=== PATIENT | female | born 1960 | race Caucasian/White ===

== ENCOUNTER 2020-04-16 12:24 | Emergency (ER) | payer OTHER, SELFPAY ==
--- NOTE | ~2020-04-16 | CT_ITS ---
EXAMINATION: CT abdomen pelvis wo con DATE: 04/16/2020 14:59 INDICATION: Left flank pain. Hematuria. TECHNIQUE: Computed tomography (CT) of the abdomen and pelvis was performed without intravenous contr ast. Automated exposure control and iterative reconstruction technique were employed. The dose-length product was 583.69 mGy-cm. COMPARISON: None. FINDINGS: The visualized portions of the lung bases demonstrate mild atelectasis. There is mild emphy sema. There are 5 mm and 4 mm nodules in right lower lobe, likely benign. No pleural effusion. The he art size is normal. No pericardial effusion. The liver, gallbladder, spleen, pancreas, adrenal glands , and right kidney are normal. There is a 3 mm stone in left kidney. There is diverticulosis of the c olon without evidence of diverticulitis. There are no dilated loops of bowel. The appendix is normal. There are no pathologically enlarged lymph nodes. There is no free intraperitoneal fluid. There is d extroscoliosis of thoracolumbar spine. There is severe thoracic spondylosis and moderate lumbar spond ylosis. IMPRESSION: 1. 3 mm nonobstructing left kidney stone. Reviewed, dictated and finalized at location A. [employer]ER [employer] REAMER
[2020-04-16 12:47] VITALS: BP 150/88; PULSE 55; RESP 20; TEMP 36.7; O2SAT 97
[2020-04-16 13:05] LABS: Basophils Absolute Auto 0.1 K/mm3 (0.0-0.1); Basophils Percent Auto 1.1 % (0.2-1.2); Eosinophils Absolute Auto 0.6 K/mm3 (0-0.3); Eosinophils Percent Auto 8.6 % (0-4.4); Hematocrit 40.2 % (37.0-47.0); Immature Granulocyte Absolute 0.01 K/mm3 (0.00-0.031); Immature Granulocyte Percent A 0.2 % (0-0.5); Lymphocytes Absolute Auto 1.75 K/mm3 (0.9-3.2); Lymphocytes Percent Auto 26.5 % (18.3-44.2); Mean Corpuscular HGB Conc 32.3 g/dl (32-36); Mean Corpuscular Hemoglobin 28.7 pg (26-34); Mean Corpuscular Volume 88.7 fl (80-100); Mean Platelet Volume 11.1 fl (7.4-10.4); Monocytes Absolute Auto 0.5 K/mm3 (0.1-0.6); Monocytes Percent Auto 7.6 % (2.6-8.5); Neutrophils Absolute Auto 3.7 K/mm3 (1.3-6.7); Platelet Count Result 201 k/mm3 (150-375); Red Blood Count 4.53 M/mm3 (4.2-5.4); Red Cell Distribution Width 14.1 % (11.5-14.5); White Blood Count 6.6 K/mm3 (4.5-10.0)
[2020-04-16 13:11] LABS: Add Urine Microscopic? YES; Appearance Urine Cloudy (Clear); Bacteria Urine Trace /hpf; Bilirubin Urine Negative (Negative); Blood Urine 3+ (Negative); Glucose Urine UA Negative (Negative); Ketones Urine Negative (Negative); Leukocyte Esterase Ur 1+ LEU/UL (Negative); Mucus Urine Rare /lpf; Nitrate Urine Negative (Negative); Protein Urine 1+ mg/dL (Negative); RBC Urine >75 /hpf (0-2); Squamous Epithelial Cell Urine Moderate /hpf (Few); Urobilinogen Urine Negative mg/dL (<2.0); WBC Urine 21-30 /hpf
[2020-04-16 13:21] LABS: Color Urine Light Red (Yellow)
[2020-04-16 13:26] LABS: Anion Gap 7 mmol/L (8-16); Blood Urea Nitrogen 18 mg/dL (7-17); Calcium 8.7 mg/dL (8.4-10.2); Carbon Dioxide 24 mmol/L (22-30); Chloride 107 mmol/L (98-107); Estimated CRCL calculation 104 ml/min; Estimated Glomerular Filt Rate > 60; Glucose 89 mg/dL (65-105); Potassium 4.1 mmol/L (3.4-5.0); Sodium 138 mmol/L (137-145)
[2020-04-16 14:02] VITALS: BP 154/77; PULSE 83; RESP 16; TEMP 36.8; O2SAT 96
--- NOTE | 2020-04-16 14:47 | ED.FEMALEGU ---
HPI - Female Genitourinary General Chief complaint: Urogenital-Female Stated complaint: BLOOD IN URINE Time Seen by Provider: 04/16/20 14:29 History of Present Illness HPI Narrative: 60 yo female presents to the ED for hematuria. She first noticed blood in her urine yesterday. Initially minimal. Now very bloody with some small clots. Associated with moderate left flank pain, which is improving, and frequent urination. She has never had these symptoms before. Related Data Home Medications Medication Instructions Recorded Confirmed escitalopram oxalate mg 04/16/20 lisinopril 04/16/20 oxybutynin chloride mg PO 04/16/20 venlafaxine mg PO 04/16/20 04/16/20 Allergies Allergy/AdvReac Type Severity Reaction Status Date / Time No Known Allergies Allergy Unknown Verified 04/16/20 12:52 Review of Systems Review of Systems: All systems reviewed & are unremarkable except as noted in HPI and below Constitutional: Constitutional: Denies chills Cardiovascular: Cardiovascular: Denies chest pain Respiratory: Respiratory: Denies dyspnea Gastrointestinal: Gastrointestinal: Denies constipation, Denies diarrhea, Denies nausea and Denies vomiting Genitourinary: Genitourinary: Reports hematuria, Reports nocturia, Denies dysuria, Reports flank pain and Denies urinary incontinence Neurologic: Denies confusion, Denies dizziness and Denies weakness PMFSH Past Medical History Medical History (Updated 04/21/20 @ 17:10 by Toni Caal MD) Anxiety Surgical History Surgical History (Updated 04/21/20 @ 17:10 by Toni Caal MD) H/O tubal ligation Social History Social History (Updated 04/21/20 @ 17:10 by Toni Caal MD) Smoking status: Current every day smoker Gender identity (if verbalized by the patient): Female Exam Const: General: healthy appearing, no acute distress and alert Orientation/consciousness: patient oriented x3 HENMT: Head: normal to inspection Neck: Neck: normal visual inspection and no lymphadenopathy Resp: Effort & Inspection: normal respiratory effort Auscultation: clear to auscultation bilaterally, no rales, no rhonchi and no wheezes Cardio: Jugular venous distension: no JVD Rate: regular rate Rhythm: regular rhythm Heart sounds: no murmurs GI: Inspection: non-distended GI Palp: Yes Soft to palpation and No Tenderness to palpation present (GI) Skin: General skin exam: normal color Neuro: General: patient oriented x3 and moves all extremities Speech: normal speech Extrem: General: no edema Psych: Appearance: well kempt Affect: normal affect Course Vital Signs Vital signs: Vital Signs Temperature 36.7 C 04/16/20 12:47 Pulse Rate 55 L 04/16/20 12:47 Respiratory Rate 20 04/16/20 12:47 Blood Pressure 150/88 H 04/16/20 12:47 Pulse Oximetry 97 04/16/20 12:47 Temperature 36.1 C L 04/16/20 16:16 Pulse Rate 50 L 04/16/20 16:16 Respiratory Rate 16 04/16/20 16:16 Blood Pressure 147/71 H 04/16/20 16:16 Pulse Oximetry 97 04/16/20 16:16 MDM - Female Genitourinary MDM Narrative Medical decision making narrative: She has a stone in the left kidney, unlikely to be the source of her symtpoms. Possible that she already passed a stone. Cannot rule out UTI based on UA. I start antibiotics. Differential Diagnosis Differential diagnosis: Likely urinary tract infection, cystitis and other (pyelonephritis, Kidney stone) Medical Records Attestation: I reviewed the patient's medical records. Lab Data Attestation: I reviewed the patient's lab results. Result diagrams: 04/16/20 12:55 04/16/20 12:55 Labs: Lab Results 04/16/20 04/16/20 04/16/20 Range/Units 12:55 12:55 12:55 WBC 6.6 (4.5-10.0) K/mm3 RBC 4.53 (4.2-5.4) M/mm3 Hgb 13.0 (12.0-15.0) g/dL Hct 40.2 (37.0-47.0) % MCV 88.7 (80-100) fl MCH 28.7 (26-34) pg MCHC 32.3 (32-36) g/dl RDW 14.1 (11.5-14.5) % Plt
[2020-04-16] MEDS: NITROFURANTOIN MONOHYD MACROCR 100 MG CAP PO (15:37)
[2020-04-16 16:16] VITALS: BP 147/71; PULSE 50; RESP 16; TEMP 36.1; O2SAT 97
== END 2020-04-16 16:19 | disposition home or self-care (01) ==
PROVIDERS: Emergency Provider Emergency Medicine; PCP Internal Medicine
DX: N39.0 Urinary tract infection, site not specified (principal); F17.200 Nicotine dependence, unspecified, uncomplicated; N20.0 Calculus of kidney
CPT/HCPCS: 36415; 74176; 80048; 81001; 85025; 87077; 87086; 87088; 87186; 99284; A9270

== ENCOUNTER 2021-07-27 08:12 | Outpatient (CLI) | payer BC, SELFPAY ==
[2021-07-27 08:56] LABS: Alanine Aminotransferase 20 U/L (4-35); Albumin Level 4.1 g/dL (3.5-5.1); Alkaline Phosphatase 80 U/L (38-126); Anion Gap 7 mmol/L (8-16); Aspartate Amino Transferase 34 U/L (14-36); Bilirubin,Total 0.5 mg/dL (0.2-1.3); Blood Urea Nitrogen 19 mg/dL (7-17); Calcium 8.8 mg/dL (8.4-10.2); Carbon Dioxide 23 mmol/L (22-30); Chloride 110 mmol/L (98-107); Cholesterol 227 mg/dL (0-200); Estimated Glomerular Filt Rate > 60; Glucose 102 mg/dL (65-110); HDL Direct 63 mg/dL; Potassium 4.3 mmol/L (3.4-5.0); Sodium 140 mmol/L (137-145); Triglycerides 100 mg/dL (<150)
[2021-07-27 09:07] LABS: LDL Cholesterol Direct 112 mg/dL
[2021-07-27 09:45] LABS: Vitamin D 25 Hydroxy 43.6 ng/mL
== END 2021-07-27 08:13 | disposition home or self-care (01) ==
LOC: ANHLAB 08:16
PROVIDERS: PCP Internal Medicine; Visit Provider Internal Medicine
DX: E78.5 Hyperlipidemia, unspecified (principal); I10 Essential (primary) hypertension; Z51.81 Encounter for therapeutic drug level monitoring; Z79.899 Other long term (current) drug therapy
CPT/HCPCS: 36415; 80053; 80061; 82306

== ENCOUNTER 2022-05-14 10:13 | Emergency (ER) | payer OTHER, BC, SELFPAY ==
--- NOTE | ~2022-05-14 | XR_ITS ---
EXAMINATION: XR wrist LT min 3V DATE: 05/14/2022 11:06 INDICATION: Left wrist pain, initial encounter TECHNIQUE: Three views of the left wrist were obtained. COMPARISON: None available FINDINGS: There is a comminuted intra-articular fracture of the distal radius. The distal fracture fr agment is overriding. There are 40 degrees of dorsal angulation at the fracture site. Radiocarpal ali gnment appears to be maintained. No additional fracture is seen. There is advanced osteoarthritis at the first carpometacarpal joint. IMPRESSION: 1. Comminuted intra-articular fracture of the distal radius with angulation and overriding of the dis parris fracture fragment. Reviewed, dictated and finalized at location A. RAGE SPECIALIST RN IMPRESSION: 1. Comminuted intra-articular fracture of the distal radius with angulation and overriding of the distal fracture fragment.
--- NOTE | ~2022-05-14 | XR_ITS ---
EXAMINATION: XR wrist LT 2V INDICATION: Post reduction TECHNIQUE: Two views of the left wrist are obtained COMPARISON: 1036 hours FINDINGS: Again seen is a comminuted intra-articular fracture of the distal radius. The distal fractu re fragment remains dorsally displaced and is overriding. Angulation at the fracture site has been re duced. A transverse ulnar styloid avulsion is noted. There is soft tissue swelling of the wrist. IMPRESSION: 1. Comminuted intra-articular fracture at the distal radius with persistent overriding of the distal fracture fragment but improved angulation. 2. Ulnar styloid avulsion. Reviewed, dictated and finalized at location A. CAID BUSINESS ANALYST IMPRESSION: 1. Comminuted intra-articular fracture at the distal radius with persistent ove rriding of the distal fracture fragment but improved angulation. 2. Ulnar styloid avulsion.
[2022-05-14 10:22] VITALS: BP 167/73; PULSE 53; RESP 16; TEMP 36.4; O2SAT 100
--- NOTE | 2022-05-14 10:42 | ED.UPPEXIN ---
HPI - Extremity Injury (Upper) General Chief Complaint: Extremity Injury, Upper Stated Complaint: fall, left wrist injury Time Seen by Provider: 05/14/22 10:19 History of Present Illness HPI narrative: Patient is a 62-year-old right-handed female here for evaluation of left wrist pain after a fall today. Patient states that she was walking at work in her usual state of health when her shoes got caught on an object on the ground, causing her to fall backwards and land on both hands behind her. Since the fall she is complained of left wrist pain. She denies any numbness or tingling in her hands. No head injury in the fall. Has not taken any medicine for pain. Related Data Home Medications Medication Instructions Recorded Confirmed escitalopram oxalate 10 mg tablet mg 04/16/20 lisinopril 40 mg tablet 04/16/20 oxybutynin chloride 10 mg mg PO 04/16/20 tablet,extended release 24 hr venlafaxine 150 mg mg PO 04/16/20 04/16/20 capsule,extended release 24 hr Allergies Allergy/AdvReac Type Severity Reaction Status Date / Time No Known Allergies Allergy Unknown Verified 05/14/22 10:25 Review of Systems Review of Systems: Gen: Denies fevers or chills Eyes: Denies eye pain or visual change ENT: Denies congestion Respiratory: Denies shortness of breath or cough CV: Denies chest pain or palpitations GI: Denies abdominal pain nausea, emesis or diarrhea : denies burning, urgency, frequency or hematuria Musculoskeletal: Reports left wrist pain. Denies back pain or muscle pain Neuro: Denies numbness, tingling, weakness or focal weakness Skin: Denies rash Except as documented, all other systems reviewed and negative [facility] Past Medical History Medical History Anxiety Surgical History Surgical History H/O tubal ligation Social History Social History (Updated 04/21/20 @ 17:10 by Toni Caal MD) Smoking status: Current every day smoker Gender identity (if verbalized by the patient): Female Exam Narrative: Gen: Alert, oriented, tearful Eyes: EOMI, no icterus Pulm: Respirations even and unlabored, symmetric thorax expansion, no audible stridor or visible cyanosis CV: Strong radial pulses. Brisk capillary refill GI: No distension, no voluntary/involuntary guarding Neuro: Sensation intact over entirety of hand and wrist. AOx4, moves all extremities without apparent difficulty or weakness, follows commands MSK: There is an obvious deformity to the left wrist, tenderness to palpation over the distal radius. Skin: No jaundice, no visible bruising, rashes, lesions or wounds on exposed skin Psych: Normal mood/affect, insight/judgement good, adequate fund of knowledge, recent/remote memory intact Course Vital Signs Vital signs: Vital Signs Temperature 97.5 F L 05/14/22 10:22 Pulse Rate 53 L 05/14/22 10:22 Respiratory Rate 16 05/14/22 10:22 Blood Pressure 167/73 H 05/14/22 10:22 Pulse Oximetry 100 05/14/22 10:22 Oxygen Delivery Room Air 05/14/22 10:22 Temperature 97.5 F L 05/14/22 10:22 Pulse Rate 53 L 05/14/22 10:22 Respiratory Rate 16 05/14/22 10:22 Blood Pressure 167/73 H 05/14/22 10:22 Pulse Oximetry 100 05/14/22 10:22 Oxygen Delivery Room Air 05/14/22 10:22 Procedures Orthopedic Joint Reduction Joint #1: Orthopedic Joint Reduction Date: 05/14/22 Orthopedic Joint Reduction Time: 13:00 Time Out Performed: Yes Side: left Joint Reduction Location: wrist Analgesia: hematoma block and other (fentanyl) Pre-Procedure Neuro Vascular Exam: normal Local Anesthesia: lidocaine 1% Amount of anesthesic used (mL): 7 Technique used: traction/counter-traction (finger traps) Post-reduction neuro exam: intact Post-reduction vascular: intact Post Reduction X-Ray Obtained: Gallito
[2022-05-14] MEDS: fentaNYL CITRATE INJ (*CRX) 100 MCG/2 ML VIAL 50 MCG IV PUSH (10:56)
[2022-05-14] MEDS: fentaNYL CITRATE INJ (*CRX) 100 MCG/2 ML VIAL 25 MCG IV PUSH (14:12)
== END 2022-05-14 14:21 | disposition home or self-care (01) ==
PROVIDERS: Emergency Provider Physician Assistant; PCP Internal Medicine
DX: S52.572A Other intraarticular fracture of lower end of left radius, initial encounter for closed fracture (principal); S52.612A Displaced fracture of left ulna styloid process, initial encounter for closed fracture; S62.002A Unspecified fracture of navicular [scaphoid] bone of left wrist, initial encounter for closed fracture; F41.9 Anxiety disorder, unspecified; F17.200 Nicotine dependence, unspecified, uncomplicated; W18.09XA Striking against other object with subsequent fall, initial encounter
CPT/HCPCS: 25605; 25624; 73100; 73110; 96374; 96376; 99285; J3010

== ENCOUNTER 2024-02-13 08:38 | Outpatient (CLI) | payer BC, SELFPAY ==
--- NOTE | 2024-02-13 | ECHO_ITS ---
Patient Info Name: Maria Del Rosario Martinez Age: 63 years : 1960 Gender: Female Ht: 65 in Wt: 190 lbs BSA: 2.02 m2 HR: 51 bpm BP: 110 / 74 mmHg Heart Rhythm: Bradycardia Technical Quality: Good Exam Date: 02/13/2024 9:06 AM Exam Location: Echo Lab Patient Status: Outpatient Admit Date: 02/13/2024 Staff Ordering Physician: Keira, Coy Soares MD Extractor Machine Operator: Kiya Dempsey RDCS Attending Provider: New, Coy Soares MD Referring Physician: Keira LATHAM; Exam Type: CA echo doppler color flow Study Info Indications - MURMUR Complete two-dimensional, color flow and Doppler transthoracic echocardiogram is performed. Summary 1. Complete two-dimensional, color flow and Doppler transthoracic echocardiogram is performed. 2. Left ventricular chamber dimension is normal. 3. Left ventricular systolic function is normal, estimated at 60-65%. 4. The left ventricular diastolic function is abnormal. 5. E/e' 13 is mildly elevated. 6. Left atrial chamber dimension is mildly enlarged. 7. There is moderate aortic valve sclerosis. 8. There is mild aortic valve stenosis with a peak velocity of 303 cm/s, mean gradient of 27 mmHg, and aortic valve area of 1.5 cm2. 9. There is trace mitral valve regurgitation. 10. There is trace tricuspid valve regurgitation. 11. No pulmonary hypertension, estimated pulmonary arterial systolic pressure is 34 mmHg. Left Ventricle E/e' 13 is mildly elevated. Left ventricular chamber dimension is normal. Left ventricular systolic function is normal, estimated at 60-65%. The left ventricular diastolic function is abnormal. Right Ventricle Right ventricular systolic function is normal and with normal TAPSE 2.5 cm. Right ventricular chamber dimension is normal. Left Atria Left atrial chamber dimension is mildly enlarged. Right Atria Right atrial chamber dimension is normal. Aortic Valve The aortic valve is trileaflet. There is moderate aortic valve sclerosis. There is mild aortic valve stenosis with a peak velocity of 303 cm/s, mean gradient of 27 mmHg, and aortic valve area of 1.5 cm2. There is no aortic valve regurgitation. Pulmonic Valve There is no pulmonic regurgitation. Mitral Valve There is no mitral valve stenosis. There is trace mitral valve regurgitation. Tricuspid Valve There is trace tricuspid valve regurgitation. No pulmonary hypertension, estimated pulmonary arterial systolic pressure is 34 mmHg. Pericardium/Pleural There is no pericardial effusion. Inferior Vena Cava Normal inferior vena cava with >50% collapse upon inspiration consistent with normal right atrial pressure, 5 mmHg. Aorta The aortic root size at the sinus of Valsalva is normal. Left Ventricular Outflow Tract Name Value Normal LVOT 2D LVOT Diameter 2.1 cm LVOT Doppler LVOT Peak Gradient 6 mmHg LVOT Mean Gradient 3 mmHg LVOT VTI 39 cm LVOT VTI/AV VTI Ratio 0.4 LVOT Stroke Volume 130 ml LVOT CO 6.1 l/min LVOT CI 3.0 l/min/m2 Mitral Valve Name Value Normal MV Doppler MV Decel Grayson 356 cm/s2 MV PHT 88 ms MV Area (PHT) 2.5 cm2 4.0-5.0 MV Regurgitation Doppler MR Peak Gradient 11 mmHg MV Diastolic Function MV E Peak Velocity 108 cm/s MV A Peak Velocity 60 cm/s MV E/A 1.8 MV Decel Time 305 ms MV Annular TDI MV E/e' (Septal) 16.8 <=8.0 MV E/e' (Lateral) 11.9 <=8.0 MV E/e' (Average) 14.3 Tricuspid Valve Name Value Normal TV Regurgitation Doppler TR Peak Velocity 269 cm/s TR Peak Gradient 23 mmHg Estimated PAP/RSVP RA Pressure 5 mmHg <=5 PA Systolic Pressure 34 mmHg <36 RV Systolic Pressure 34 mmHg <36 Aortic Valve Name Value Normal AV Doppler AV Peak Velocity 303 cm/s AV Peak Gradient 37 mmHg AV Mean Gradient 27 mmHg AV VTI 87 cm AV Area (Cont Eq VTI) 1.5 cm2 >=3.0 AV Area (Cont Eq Zaheer) 1.0 cm2 AV Regurgitation 2D LVOT Area 3.3 cm2 Ventricles Name Value Normal LV Dimensions 2D/MM IVS Diastolic Thickness (2D) 1.0 cm 0.6-1.0 LVID Diastole (2D) 4.8 cm 3.8-5.2 LVIW Diastolic Thickness (2D) 1.0 cm 0.6-0.9 LVID Systole (2D) 3.3 cm 2.2-3.5 LVOT Diameter 2.1 cm LV Mass (2D Cubed) 168.15 g 67.00-162.00 LV Mass Index (2D Cubed) 83 g/m2 43-95 Relative Wall Thickness (2D) 0.41 LV Fractional Shortening/Ejection Fraction 2D/MM LV Fractional Shortening (2D) 31 % 27-45 LV EF (2D Teicholz) 59 % 54-74 LV Diastolic Volume (4C MOD) 99 ml LV EF (4C MOD) 55 % LV Diastolic Volume (2C MOD) 111 ml LV EF (2C MOD) 70 % LV Diastolic Volume (BP MOD) 107 ml 46-106 LV Diastolic Volume Index (BP MOD) 53 ml/m2 29-61 LV Systolic Volume (BP MOD) 40 ml 14-42 LV Systolic Volume Index (BP MOD) 20 ml/m2 8-24 LV EF (BP MOD) 62 % 54-74 LV Diastolic Length (4C) 7.5 cm LV Systolic Length (4C) 5.7 cm LV Stroke Volume (4C MOD) 54 ml Atria Name Value Normal LA Dimensions LA Volume (4C A-L) 35 ml LA Volume (BP A-L) 39 ml RA Dimensions RA Area (4C) 10.1 cm2 <=18.0 Report Signatures
== END 2024-02-13 08:39 | disposition home or self-care (01) ==
PROVIDERS: PCP Internal Medicine; Visit Provider Internal Medicine
DX: R01.1 Cardiac murmur, unspecified (principal); I51.89 Other ill-defined heart diseases; I35.8 Other nonrheumatic aortic valve disorders; I35.0 Nonrheumatic aortic (valve) stenosis
CPT/HCPCS: 93306

== ENCOUNTER 2024-03-25 16:08 | Outpatient (CLI) | payer BC, SELFPAY ==
--- NOTE | ~2024-03-25 | CT_ITS ---
EXAMINATION:CT lung screening DATE: 03/25/2024 16:37 INDICATION: Personal history of tobacco dependence. Smoker who quit 12 years with 48 pack year histor y. TECHNIQUE: Computed tomography (CT) of the chest was performed without intravenous contrast. Automate d exposure control and iterative reconstruction technique were employed. The dose-length product (DLP ) was 140.34 mGy-cm. COMPARISON: CT abdomen pelvis 04/16/2020 FINDINGS: There is mild emphysema. There are a few nodules in the lungs measuring up to 5 mm in right lower lobe. There is mild atelectasis bilaterally. No pleural effusion. The heart size is normal. Th ere are calcifications of the aortic valve. No pericardial effusion. There is severe thoracic spondyl osis. IMPRESSION: 1. Lung-RADS category 2: Benign appearance or behavior. Continue annual screening with noncontrast lo w-dose chest CT in 12 months. Reviewed, dictated and finalized at location A. ACT L[employer] BLOCKER AND CUTTER IMPRESSION: 1. Lung-RADS category 2: Benign appearance or behavior. Continue annual screeni ng with noncontrast low-dose chest CT in 12 months.
== END 2024-03-25 16:09 | disposition home or self-care (01) ==
PROVIDERS: PCP Internal Medicine; Visit Provider Internal Medicine
DX: Z12.2 Encounter for screening for malignant neoplasm of respiratory organs (principal); Z87.891 Personal history of nicotine dependence; Z12.31 Encounter for screening mammogram for malignant neoplasm of breast
CPT/HCPCS: 71271